=== PATIENT | male | born 1995 | race Caucasian/White ===

== ENCOUNTER 2020-11-13 07:55 | Emergency (ER) | payer SELFPAY ==
--- NOTE | 2020-11-13 07:59 | ED_ITS ---
HPI - Extremity Injury (Lower) General: Chief Complaint: Extremity Injury, Lower Stated Complaint: LLE INJURY Time Seen by Provider: 11/13/20 07:58 History of Present Illness: HPI Narrative: 25 yo male with complaints of LLE injury. Presents emergency room with left ankle and foot pain. He was riding on a horse and injured it when he fell. He had no other injuries. He has initially been able to walk on it but now has become more uncomfortable and he started using crutches. No previous injury or surgery to the foot. Review of Systems Const: Denies: fever(s), chills, body aches, change in appetite, fatigue or malaise Card: Denies: chest pain, edema, dyspnea on exertion or orthopnea Resp: Denies: dyspnea, productive cough or non-productive cough GI: Denies: abdominal pain, nausea or vomiting Physical Exam Const: COMMON NORMALS: no acute distress GENERAL APPEARANCE: cooperative and comfortable ORIENTATION/CONSCIOUSNESS: Yes awake, Yes oriented to person, Yes oriented to place and Yes oriented to time HENMT: COMMON NORMALS: normocephalic, atraumatic and hearing grossly normal bilaterally HEAD & SCALP: normocephalic and atraumatic Neck/C-Spine: COMMON NORMALS: no JVD Resp: COMMON NORMALS: normal respiratory effort, No retractions, No use of accessory muscles and clear to auscultation bilaterally AUSCULTATION: clear to auscultation bilaterally Cardio: COMMON NORMALS: no JVD, regular rate, regular rhythm and No murmurs present (Cardio) RATE: regular rate RHYTHM: regular rhythm Extremity: COMMON NORMALS: normal to inspection, capillary refill normal, no clubbing, cyanosis or edema, no calf tenderness and no pedal edema Neuro: SENSORIUM/ORIENTATION: Yes oriented to person, Yes oriented to place and Yes oriented to time Skin: COMMON NORMALS: no rashes or lesions noted GENERAL SKIN EXAM: no rashes or lesions noted Course Vital Signs: Vital signs: Vital Signs Temperature 98.1 F 11/13/20 08:00 Pulse Rate 90 11/13/20 08:00 Respiratory Rate 18 11/13/20 08:00 Blood Pressure 152/88 11/13/20 08:00 Pulse Oximetry 97 11/13/20 08:00 MDM - Extremity Injury (Lower) MDM Narrative: Medical decision making narrative: X-ray is unremarkable no fracture of the foot or the ankle. Anti-inflammatories weightbearing as tolerated ice elevate whenever able. Discharge Plan Discharge Patient Disposition: Home Clinical Impression: Ankle sprain and strain Condition: Stable Prescriptions: New diclofenac sodium 75 mg tablet,delayed release (DR/EC) 75 mg PO Q12H PRN (Reason: pain) Qty: 20 RF: 0 Discharge Orders: Discharge ED (Routine); Ordered 11/13/20 Ordered By: Jayjay Mcconnell Discharge Diet: Usual diet Discharge Activity: Increase activity as tolerated Patient Instructions: Opioid Safety Coding Level of Care Code ED Transitional Care Nurse for Jodee López
[2020-11-13 08:00] VITALS: BP 152/88; PULSE 90; RESP 18; TEMP 36.7; O2SAT 97; BMI 39.8
--- NOTE | 2020-11-13 08:03 | XRR_ITS ---
PROCEDURE INFORMATION: Exam: XR Left Ankle Exam date and time: 11/13/2020 8:18 AM Age: 25 years old Clinical indication: Pain and injury or trauma; Other: Lifting box and heard a pop ; Sprain or strain; Ankle and foot; Left; Additional info: Pain trauma TECHNIQUE: Imaging protocol: XR Left ankle. Views: 3 or more views. COMPARISON: No relevant prior studies available. FINDINGS: Bones/joints: Normal. Soft tissues: Normal. XR/XR ankle LT min 3V* [id number] IMPRESSION: No acute findings.
--- NOTE | 2020-11-13 08:27 | XRR_ITS ---
PROCEDURE INFORMATION: Exam: XR Left Foot Exam date and time: 11/13/2020 8:29 AM Age: 25 years old Clinical indication: Pain and injury or trauma; Other: Lfiting box and hand slipped and PT heard it pop; Sprain or strain; Ankle and foot; Left TECHNIQUE: Imaging protocol: XR Left foot. Views: 3 or more views. COMPARISON: CR XR ankle LT min 3V* [id number] 11/13/2020 8:05 AM FINDINGS: Bones/joints: No fracture or dislocation. Soft tissues: Possible mild prominence of the soft tissues along the dorsum of the foot. XR/XR foot LT min 3V* [id number] IMPRESSION: No acute injury.
[2020-11-13 09:47] VITALS: BP 146/68; PULSE 85; RESP 18; O2SAT 99
== END 2020-11-13 09:49 | disposition home or self-care (01) ==
PROVIDERS: Emergency Provider Family Medicine
DX: S93.402A Sprain of unspecified ligament of left ankle, initial encounter (principal); S96.912A Strain of unspecified muscle and tendon at ankle and foot level, left foot, initial encounter; V80.010A Animal-rider injured by fall from or being thrown from horse in noncollision accident, initial encounter
CPT/HCPCS: 73610; 73630; 99282